=== PATIENT | female | born 1980 | race Caucasian/White ===

== ENCOUNTER 2017-02-19 22:12 | Emergency (ER) | payer MEDICAID ==
[~2017-02-19] VITALS: Ht 162.6 cm; Wt 74.0 kg
[~2017-02-19 22:12] MED LIST: EC-N500T7 PO; LORTA5 PO
[2017-02-19 22:13] VITALS: BP 132/80; PULSE 80; RESP 14; TEMP 97.7; O2SAT 100
[2017-02-19] MEDS ORDERED: IBUPROFEN 600 MG TAB PO ONE (23:15)
[2017-02-19] MEDS ORDERED: DICL75TA PO (23:23)
--- NOTE | 2017-02-19 23:23 | PD ---
HPI Chief Complaint: Injury Time Seen by Provider: 23:19 Travel History International Travel<30 days: No Contact w/Intl Traveler<30days: No Traveled to known affect area: No History of Present Illness HPI 37-year-old white female presents to emergency department for evaluation of right ankle pain after inversion injury yesterday. She states that she tripped twisting her ankle. She does not recall hearing or feeling any pop or crack. She states the pain is mild to moderate. Worse with weightbearing. Some relief with elevation. She denies any injury to her head, neck or back. She did sustain an abrasion to her right hand. She has not had a tetanus shot over 5 years. [facility]LY [facility] Past Medical History Medical History: Denies Significant Hx Reproductive: Yes (endometriosis) Respiratory: Yes (endometriosis) Tetanus Vaccination: > 5 Years ?: Not : 3 Tubal Ligation: Yes Past Surgical History Narrative Surgical Hysterectomy, removal of ovary Abdominal Surgery: Yes (laproscopic) Hysterectomy: Yes Other Surgery: Yes Social History Alcohol Use: No Tobacco Use: No Substance Use: No Allergies-Medications (Allergen,Severity, Reaction): Uncoded Allergies: "MEDICAL TAPE" (Allergy, Unknown, 02/19/17) Reported Meds & Prescriptions Reported Meds & Active Scripts Active Diclofenac Sodium DR (Diclofenac Sodium) 75 Mg Tabdr 75 Mg PO BID Review of Systems Except as stated in HPI: all other systems reviewed are Neg Physical Exam Narrative GENERAL: Well-developed, well-nourished in no apparent distress. Nontoxic appearing. HEAD: Normocephalic, atraumatic. EYES: Pupils equal round and reactive. Extraocular motions intact. No scleral icterus. No injection or drainage. ENT: Nose clear. Throat without erythema, tonsillar hypertrophy or exudate. Uvula midline. Airway patent. NECK: Trachea midline. Supple, nontender, moves head freely. No central bony tenderness or spasm. CARDIOVASCULAR: Regular rate and rhythm without murmurs, gallops, or rubs. RESPIRATORY: Clear to auscultation. Breath sounds equal bilaterally. No wheezes , rales, or rhonchi. GASTROINTESTINAL: Abdomen soft, non-tender, nondistended. No hepato-splenomegaly , or palpable masses. No guarding. EXTREMITIES: No clubbing, cyanosis, or edema. Examination of the right lower extremity reveals pain to the anterior talar fibular and anterior talar tibial ligament. No pain in the heel, Achilles, mediolateral malleolus. No pain in the knee or hip. The left lower extremity as well as the upper extremities are unremarkable except for an abrasion over the dorsum of the right hand. She has intact sensation with good distal pulses. BACK: Nontender without deformity. No flank tenderness. NEUROLOGICAL: Awake, alert and oriented x 3 .Cranial nerves grossly intact. Motor and sensory grossly within normal limits. Normal speech. Data Data Last Documented VS Vital Signs Date Time Temp Pulse Resp B/P Pulse Ox O2 Delivery O2 Flow Rate FiO2 02/19/17 22:13 97.7 80 14 132/80 100 Room Air Orders Ankle, Complete ([id number]) (02/19/17 23:15) Ice/Cold Pack (02/19/17 23:15) Splint Or Brace Apply/Monitor (02/19/17 23:15) Crutches (02/19/17 23:15) Ibuprofen (Motrin) (02/19/17 23:15) Tetanus/Diphtheria Tox Adult (Tetanus/Di (02/19/17 23:30) MDM Medical Decision Making Medical Screen Exam Complete: Yes Emergency Medical Condition: Yes Medical Record Reviewed: Yes Interpretation(s) Right ankle: Negative for acute bony injury. Differential Diagnosis MDM: High Differential diagnoses: Fracture, sprain, strain, dislocation, contusion, neurovascular injury Narrative Course X-ray of the right ankle is negative for bony injury. Patient's given Motrin 600 mg by mouth, Pradip wrap and crutches. Tetanus immunization updated. This is right ankle sprain Diagnosis Primary Impression: Right ankle sprain Qualified Code: S93.421A - Sprain of deltoid ligament of right ankle, initial encounter Patient Instructions: General Instructions Departure Forms: Tests/Procedures, Work Release Special Instructions: No work 2 days. Additional Instructions: Rest. Elevation. Ice packs for the next 3 days. Pradip wrap and crutches. No weight-bearing and then progress to weight-bearing as tolerated. Medications as directed Follow-up with an orthopedist or your doctor in one week. Return to the ER if any problems Med/Other Pt SpecificInfo: Prescription(s) given Scripts Diclofenac Sodium DR 75 Mg Tabdr75 Mg PO BID #20 TAB Prov:Sophia King DO 02/19/17 Disposition: 01 DISCHARGE HOME Condition: Stable Montana Cruz Feb 19, 2017 23:23
[2017-02-19] MEDS ORDERED: TETANUS/DIPHTHERIA TOXOID ADULT 0.5 ML VIAL IM ONE (23:30)
--- NOTE | 2017-02-19 23:54 | RADRPT ---
EXAM DATE/TIME: 02/19/2017 23:31 [facility] COMPARISON: No previous studies available for comparison. INDICATIONS : Twisted right ankle. MEDICAL HISTORY : None. SURGICAL HISTORY : None. ENCOUNTER: Initial ACUITY: 2 days PAIN SCORE: 0/10 LOCATION: Right ankle FINDINGS: Three view exam was performed of the right ankle. The bony structures are in normal alignment. No e vidence of fracture, dislocation, or soft tissue swelling. The ankle mortise is intact. No radiopaq ue foreign bodies are seen. Bony mineralization is normal. CONCLUSION: No acute disease. Larry Trevizo MD on February 19, 2017 at 23:52 Board Certified Radiologist. This report was verified electronically.
== END 2017-02-20 00:26 | disposition home or self-care (01) ==
LOC: NEPB 22:12
DX: S93.401A Sprain of unspecified ligament of right ankle, initial encounter (principal); W18.49XA Other slipping, tripping and stumbling without falling, initial encounter; Y93.01 Activity, walking, marching and hiking; Y92.9 Unspecified place or not applicable; Z23 Encounter for immunization
CPT/HCPCS: 73610; 90471; 90714; 99283; E0113

== ENCOUNTER 2017-03-12 23:04 | Emergency (ER) | payer MEDICAID ==
[~2017-03-12] VITALS: Ht 162.6 cm; Wt 76.3 kg
[~2017-03-12 23:04] MED LIST changes: +DICL75TA PO; -EC-N500T7 PO; -LORTA5 PO
[2017-03-12 23:19] VITALS: BP 138/81; PULSE 85; RESP 16; TEMP 97.5; O2SAT 100
[2017-03-14] MEDS ORDERED: IBUP-232 PO
== END 2017-03-13 01:58 | disposition left against medical advice (07) ==
LOC: PHED 23:04
DX: M25.571 Pain in right ankle and joints of right foot (principal)
CPT/HCPCS: 99281

== ENCOUNTER 2017-03-13 22:37 | Emergency (ER) | payer MEDICAID ==
[~2017-03-13] VITALS: Ht 162.6 cm; Wt 76.7 kg
[2017-03-13 22:45] VITALS: BP 113/76; PULSE 67; RESP 16; TEMP 97.8; O2SAT 100
--- NOTE | 2017-03-13 23:26 | RADHPO ---
EXAM DATE/TIME: 03/13/2017 23:09 [facility] COMPARISON: ANKLE RIGHT COMPLETE ([id number]), February 19, 2017, 23:31. INDICATIONS : Patient states she twisted her right ankle 1 month ago MEDICAL HISTORY : None. SURGICAL HISTORY : None. ENCOUNTER: Initial ACUITY: 1 month PAIN SCORE: 6/10 LOCATION: Right lateral and anterior ankle FINDINGS: Three view exam was performed of the right ankle. The bony structures are in normal alignment. No e vidence of fracture, dislocation, or soft tissue swelling. The ankle mortise is intact. No radiopaq ue foreign bodies are seen. Bony mineralization is normal. CONCLUSION: Unremarkable and stable exam compared to the prior study. Peterson Jason MD on March 13, 2017 at 23:24 Board Certified Radiologist. This report was verified electronically.
[2017-03-14] MEDS ORDERED: IBUP-232 PO
--- NOTE | 2017-03-14 00:01 | PD ---
HPI Chief Complaint: Injury Time Seen by Provider: 23:49 Travel History International Travel<30 days: No Contact w/Intl Traveler<30days: No Traveled to known affect area: No History of Present Illness HPI The patient is a 37-year-old female that injured her right ankle on February 11. She had it evaluated on the and x-rays at that time are normal. She comes in today, one month later because of persistent discomfort at the end of the day in her right ankle. 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 She denies any giving away of the ankle. She did not reinjure the ankle. She denies any other pain. PFSH Past Medical History Diminished Hearing: No Reproductive: Yes (endometriosis) Respiratory: Yes (endometriosis) Tetanus Vaccination: < 5 Years Influenza Vaccination: No ?: Not : 3 Tubal Ligation: Yes Past Surgical History Abdominal Surgery: Yes (laproscopic) Hysterectomy: Yes Other Surgery: Yes Social History Alcohol Use: No Tobacco Use: No Substance Use: No Allergies-Medications (Allergen,Severity, Reaction): Uncoded Allergies: "MEDICAL TAPE" (Allergy, Unknown, 02/19/17) Reported Meds & Prescriptions Reported Meds & Active Scripts Active Diclofenac Sodium DR (Diclofenac Sodium) 75 Mg Tabdr 75 Mg PO BID Review of Systems Except as stated in HPI: all other systems reviewed are Neg Physical Exam Narrative GENERAL: Well-nourished, well-developed patient. SKIN: Focused skin assessment warm/dry. HEAD: Normocephalic. EYES: No scleral icterus. No injection or drainage. NECK: Supple, trachea midline. No JVD or lymphadenopathy. CARDIOVASCULAR: Regular rate and rhythm without murmurs, gallops, or rubs. RESPIRATORY: Breath sounds equal bilaterally. No accessory muscle use. GASTROINTESTINAL: Abdomen soft, non-tender, nondistended. MUSCULOSKELETAL: No cyanosis, or edema. The right ankle shows no swelling or deformity. There is no deformity of the foot either. There is tenderness on the anterior talofibular ligament as well as calcaneal fibular ligament. There is no medial tenderness present. Ankle drawer shows stable. No ecchymoses are present. Specifically, there is no joint space swelling or erythema. Squeezing the tibia and fibula on the upper portion of the right leg shows no pain and there is no evidence of high ankle sprain. BACK: Nontender without obvious deformity. No CVA tenderness. Data Data Last Documented VS Vital Signs Date Time Temp Pulse Resp B/P Pulse Ox O2 Delivery O2 Flow Rate FiO2 03/13/17 22:45 97.8 67 16 113/76 100 Orders Ankle, Complete ([id number]) (03/13/17 22:54) MDM Medical Decision Making Medical Screen Exam Complete: Yes Emergency Medical Condition: Yes Medical Record Reviewed: Yes Differential Diagnosis Sprained ankle, fracture ankle, high ankle sprain, persistent ankle pain Narrative Course There is no clinical evidence of a high ankle sprain. She does have persistent ankle pain at the end of the day working. She should follow-up with a document review attorney who may recommend sole inserts or other modalities of treatment. She is also given Motrin 600 mg 3 times daily to help with the irritation that occurs at the end of the day of weightbearing on her ankle. She is told about a baps BOARD. Additional Instructions: As we discussed, you should follow-up with podiatry as soon as possible. He can suggest exercises or sole inserts that may benefit. Take the Motrin 1 tablet 3 times daily regularly he develop high anti-inflammatory levels. This usually results in a decrease in pain at the end of the day. Med/Other Pt SpecificInfo: Prescription(s) given Scripts Ibuprofen 600 Mg [id number] Mg PO TID #30 TAB Ref 0 Prov:Alex Morel MD 03/14/17 Disposition: 01 DISCHARGE HOME Condition: Stable Alex Morel MD Mar 14, 2017 00:01
[2017-03-14 00:16] VITALS: BP 147/82
== END 2017-03-14 00:29 | disposition home or self-care (01) ==
LOC: PHED 22:37
DX: S99.911D Unspecified injury of right ankle, subsequent encounter (principal); X58.XXXD Exposure to other specified factors, subsequent encounter
CPT/HCPCS: 73610; 99283

== ENCOUNTER 2017-11-16 20:24 | Emergency (ER) | payer MEDICAID, OTHER ==
[~2017-11-16] VITALS: Ht 162.6 cm; Wt 75.0 kg
[~2017-11-16 20:24] MED LIST changes: +IBUP-232 PO
[2017-11-16 20:26] VITALS: BP 129/71; PULSE 75; RESP 16; TEMP 97.7; O2SAT 100
[2017-11-16] MEDS ORDERED: CYCL10TA PO (21:43)
[2017-11-16] MEDS ORDERED: DICL75TA PO (21:43)
[2017-11-16] MEDS ORDERED: CYCLOBENZAPRINE HCL 10 MG TAB PO ONE (21:45)
[2017-11-16] MEDS ORDERED: NAPROXEN 500 MG TAB PO ONE (21:45)
--- NOTE | 2017-11-16 21:50 | PD ---
HPI Chief Complaint: Back/ Neck Pain or Injury Time Seen by Provider: 21:20 Travel History International Travel<30 days: No Contact w/Intl Traveler<30days: No Traveled to known affect area: No History of Present Illness HPI 37-year-old white female presents to emergency Department with complaints of left lower back pain which started earlier this evening. She states that is moderate in intensity. Worse with bending and movement. Some relief remaining still. She denies any direct trauma. 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 She denies any injury at work. She states that it started approximate 30 minutes into her shift. She denies any nausea vomiting. No abdominal pain. No dysuria , frequency or hematuria. PFSH Past Medical History Narrative Medical Endometriosis, ovarian cysts Diminished Hearing: No Reproductive: Yes (endometriosis) Respiratory: Yes (endometriosis) Tetanus Vaccination: < 5 Years ?: Not : 3 Tubal Ligation: Yes Past Surgical History Abdominal Surgery: Yes (EXPL laproscopic) Hysterectomy: Yes (FULL) Other Surgery: Yes Social History Alcohol Use: No Tobacco Use: No Substance Use: No Allergies-Medications (Allergen,Severity, Reaction): Uncoded Allergies: "MEDICAL TAPE" (Allergy, Unknown, 02/19/17) Reported Meds & Prescriptions Reported Meds & Active Scripts Active Flexeril (Cyclobenzaprine HCl) 10 Mg Tab 10 Mg PO TID Diclofenac Sodium DR (Diclofenac Sodium) 75 Mg Tabdr 75 Mg PO BID Ibuprofen 600 Mg Tab 600 Mg PO TID Review of Systems General / Constitutional: No: Fever Eyes: No: Visual changes HENT: No: Headaches Cardiovascular: No: Chest Pain or Discomfort Respiratory: No: Shortness of Breath Gastrointestinal: No: Abdominal Pain Genitourinary: No: Dysuria Musculoskeletal: No: Pain Skin: No Rash Neurologic: No: Weakness Psychiatric: No: Depression Endocrine: No: Polydipsia Hematologic/Lymphatic: No: Easy Bruising Physical Exam Narrative GENERAL: This is a well-nourished, well-developed patient, in no apparent distress. SKIN: No rashes, ecchymoses or lesions. Warm and dry. HEAD: Atraumatic. Normocephalic. EYES: PERRL, EOMI, no discharge or injection. No scleral icterus. EARS: Clear NOSE: Nasal turbinates appear normal. THROAT: Mucosa pink and moist. Airway patent. NECK: Trachea midline. supple, moves head freely. LUNGS: Clear to auscultation. CV: Regular in rhythm. ABDOMEN: Soft nontender. No guarding or rebound. Back: No central bony tenderness to palpation of the dorsal lumbar spine. Patient has upper lumbar myofascial tenderness. No gross spasm. She is able to bend forward to 90. She is able to heel and toe stand. No saddle anesthesia. EXT: No clubbing cyanosis or edema. Data Data Last Documented VS Vital Signs Date Time Temp Pulse Resp B/P (MAP) Pulse Ox O2 Delivery O2 Flow Rate FiO2 11/16/17 20:26 97.7 75 16 129/71 (90) 100 Room Air Orders Orders Ed Discharge Order (11/16/17 21:42) Naproxen (Naprosyn) (11/16/17 21:45) Cyclobenzaprine (Flexeril) (11/16/17 21:45) MDM Medical Decision Making Medical Screen Exam Complete: Yes Emergency Medical Condition: Yes Medical Record Reviewed: Yes Differential Diagnosis MDM: High Differential diagnoses: Fracture, sprain, strain, HNP, nerve or vascular injury , epidural abscess, pilonidal cyst Narrative Course Patient is given Naprosyn 500 mg and Flexeril 10 mg by mouth. This is acute back strain Diagnosis Primary Impression: acute back strain Patient Instructions: General Instructions Departure Forms: Tests/Procedures, Work Release Special Instructions: No work 2 days. Additional Instructions: Rest. Ice for the next 3 days followed by heat . Flexeril and Voltaren. Follow-up with a primary care doctor in one week. Return to the ER for emergencies. Med/Other Pt SpecificInfo: Prescription(s) given Scripts Cyclobenzaprine (Flexeril) 10 Mg Tab 10 MG PO TID for Muscle Spasm, #30 TAB 0 Refills Prov: Santiago Webster MD 11/16/[address] (Diclofenac Sodium DR) 75 Mg Tabdr 75 MG PO BID, #20 TAB Prov: Santiago Webster MD 11/16/17 Disposition: 01 DISCHARGE HOME Condition: Stable Montana CruzLiban DENNY Nov 16, 2017 21:49
== END 2017-11-16 22:32 | disposition home or self-care (01) ==
LOC: NEPD 20:24
DX: S39.012A Strain of muscle, fascia and tendon of lower back, initial encounter (principal); X58.XXXA Exposure to other specified factors, initial encounter
CPT/HCPCS: 99284

== ENCOUNTER 2017-11-23 19:30 | Emergency (ER) | payer OTHER ==
[~2017-11-23] VITALS: Ht 162.6 cm; Wt 74.8 kg
[~2017-11-23 19:30] MED LIST changes: +CYCL10TA PO
[2017-11-23 19:34] VITALS: BP 125/69; PULSE 61; RESP 16; TEMP 97.8; O2SAT 100
--- NOTE | 2017-11-23 20:01 | PD ---
HPI Chief Complaint: Eye Problems/Injury Time Seen by Provider: 19:55 Travel History International Travel<30 days: No Contact w/Intl Traveler<30days: No Traveled to known affect area: No History of Present Illness HPI 37 year old female here with left eye redness and irritation since today. She denies injury or trauma. She reports itching and mild foreign body sensation. No visual changes. No eye pain. Symptom severity is mild. No aggravating or alleviating factors. PFSH Past Medical History Medical History: Denies Significant Hx Diminished Hearing: No Reproductive: Yes (endometriosis) Respiratory: Yes (endometriosis) Immunizations Current: Yes Tetanus Vaccination: < 5 Years Influenza Vaccination: Yes ?: Not : 3 Tubal Ligation: Yes Past Surgical History Abdominal Surgery: Yes (EXPL laproscopic) Hysterectomy: Yes Other Surgery: Yes Social History Alcohol Use: No Tobacco Use: No Substance Use: No Allergies-Medications (Allergen,Severity, Reaction): Uncoded Allergies: "MEDICAL TAPE" (Allergy, Unknown, 02/19/17) Reported Meds & Prescriptions Reported Meds & Active Scripts Active No Active Prescriptions or Reported Medications Review of Systems Except as stated in HPI: all other systems reviewed are Neg General / Constitutional: No: Fever Eyes: No: Visual changes Physical Exam Narrative GENERAL: Alert well-appearing female. SKIN: Warm and dry. HEAD: Normocephalic. EYES: Left eye: Subconjunctival hemorrhage. Pupil equal, round, reactive to light. Eyes mildly injected. Corneas clear. NECK: Supple, trachea midline. No JVD or lymphadenopathy. CARDIOVASCULAR: Regular rate and rhythm without murmurs, gallops, or rubs. RESPIRATORY: Breath sounds equal bilaterally. No accessory muscle use. Data Data Last Documented VS Vital Signs Date Time Temp Pulse Resp B/P (MAP) Pulse Ox O2 Delivery O2 Flow Rate FiO2 11/23/17 19:34 97.8 61 16 125/69 (87) 100 Orders Orders Ed Discharge Order (11/23/17 20:01) Erythromycin 0.5% Opth Oint (Ilotycin 0. (11/23/17 20:15) MDM Medical Decision Making Medical Screen Exam Complete: Yes Emergency Medical Condition: Yes Differential Diagnosis Subconjunctival hemorrhage, corneal abrasion, corneal ulcer Narrative Course 37-year-old female with left eye subconjunctival hemorrhage. No trauma or injury to the eye. Normal visual acuity. No fluorescein dye uptake. Diagnosis Primary Impression: Subconjunctival hemorrhage of left eye Referrals: Primary Care Physician Scripts No Active Prescriptions or Reported Meds Disposition: 01 DISCHARGE HOME Condition: Stable Harleen Herzog Nov 23, 2017 20:01
[2017-11-23] MEDS ORDERED: ERYTHROMYCIN 0.5% OPTH OINT 3.5 GM TUBO EACH EYE ONE (20:15)
== END 2017-11-23 20:19 | disposition home or self-care (01) ==
LOC: PHEFT 19:30
DX: H11.32 Conjunctival hemorrhage, left eye (principal)
CPT/HCPCS: 99283